=== PATIENT | male | born 1965 ===

== ENCOUNTER 2018-05-02 14:23 | Emergency (ER) | payer OTHER ==
[2018-05-02 14:23] VITALS: BMI 26.2
[2018-05-02 14:40] VITALS: BP 112/78; PULSE 69; TEMP 97; O2SAT 98
--- NOTE | 2018-05-02 15:13 | ED PDOC ---
HPI: Back Time Seen by Provider: 05/02/18 14:32 Chief Complaint (Nursing): Back Pain Chief Complaint (Provider): Back Pain History Per: Patient History/Exam Limitations: no limitations Onset/Duration Of Symptoms: Days (x1) Additional Complaint(s): Patient is a 52 y/o male who presents to the ED complaining of chronic lower back pain which has been worsening since yesterday. Patient states he has also been having left arm pain which he has had in the past along with his back pain. He denies any shortness of breath. Patient reports he no longer sees pain management because his doctor retired. Past Medical History Reviewed: Historical Data, Nursing Documentation, Vital Signs Vital Signs: Last Vital Signs Temp 97 F L 05/02/18 14:39 Pulse 69 05/02/18 14:39 Resp BP 112/78 05/02/18 14:39 Pulse Ox 98 05/02/18 14:39 - Medical History PMH: Arthritis, Asthma, Back Problems, Cardia Arrhythmia, Deep Vein Thrombosis, Gastritis, HTN, Seizures Denies: Chronic Kidney Disease - Surgical History Surgical History: Pacemaker (2013) - Family History Family History: States: Unknown Family Hx - Immunization History Hx Tetanus Toxoid Vaccination: No Hx Influenza Vaccination: No Hx Pneumococcal Vaccination: No - Home Medications Home Medications: Ambulatory Orders Medication Instructions Recorded Atenolol [Tenormin] 25 mg PO DAILY 05/02/18 Rivaroxaban [Xarelto] 15 mg PO DAILY 05/02/18 Simvastatin [Zocor] 20 mg PO DAILY 05/02/18 Topiramate [Topamax] 100 mg PO BID 05/02/18 - Allergies Allergies/Adverse Reactions: Allergies Allergy/AdvReac Type Severity Reaction Status Date / Time iodine Allergy RASH Verified 08/23/16 12:44 Review of Systems ROS Statement: Except As Marked, All Systems Reviewed And Found Negative Constitutional: Negative for: Fever Respiratory: Negative for: Shortness of Breath Musculoskeletal: Positive for: Arm Pain (left), Back Pain Physical Exam - Reviewed Nursing Documentation Reviewed: Yes Vital Signs Reviewed: Yes - Physical Exam Appears: Positive for: Non-toxic, No Acute Distress Head Exam: Positive for: ATRAUMATIC Skin: Positive for: Normal Color, Warm Eye Exam: Positive for: Normal appearance Neck: Positive for: Normal Cardiovascular/Chest: Positive for: Regular Rate, Rhythm. Negative for: Murmur Respiratory: Positive for: Normal Breath Sounds. Negative for: Accessory Muscle Use, Respiratory Distress Extremity: Positive for: Other (strength in bilateral upper extremity 5/5) Neurologic/Psych: Positive for: Alert. Negative for: Motor/Sensory Deficits - ECG O2 Sat by Pulse Oximetry: 98 (RA) Pulse Ox Interpretation: Normal Medical Decision Making Medical Decision Makin03/23/18: Patient received Rx for #120 10 mg Vicodin 04/10/18: Patient received Rx for #10 50 mg Tramadol 04/12/18: Patient received Rx for #20 Ultram 04/18/18: Patient received Rx for #120 10 mg Vicodin Time: 14:54 Initial Plan: discussed case with Dr. Tejada will order EKG and CXR --EKG --CXR 2 views --Ultram 50 mg PO EKG and CXR without acute abnormalities. ~ Scribe Attestation: Documented by Dev Esteban, acting as a scribe for Angela Roa PA-C Provider Scribe Attestation: All medical record entries made by the Scribe were at my direction and personally dictated by me. I have reviewed the chart and agree that the record accurately reflects my personal performance of the history, physical exam, medical decision making, and the department course for this patient. I have also personally directed, reviewed, and agree with the discharge instructions and disposition. Disposition - Clinical Impression Clinical Impression: Exacerbation of chronic back pain - Patient ED Disposition Is Patient to be Admitted: No Counseled Patient/Family Regarding: Diagnosis, Need For Followup, Rx Given - Disposition Disposition: Routine/Home Disposition Time: 16:07 Condition: GOOD Additional Instructions: Please take tylenol for pain at home. Instructions: Low Back Pain in Adults Forms: [employer] (Greenlandic) Print Language: VENEZUELAN
--- NOTE | 2018-05-02 15:42 | RAD ---
Date of service: 05/02/2018 HISTORY: left arm pain, back pain COMPARISON: No prior. TECHNIQUE: Chest PA and lateral FINDINGS: LUNGS: No active pulmonary disease. PLEURA: No significant pleural effusion identified. No pneumothorax apparent. CARDIOVASCULAR: Left subclavian access pacemaker. Atherosclerotic aortic calcifications. Cardiomediastinal silhouette within normal limits. OSSEOUS STRUCTURES: Degenerative changes. VISUALIZED UPPER ABDOMEN: Normal. OTHER FINDINGS: None. IMPRESSION: No active disease.
[2018-05-02 16:09] VITALS: RESP 16
--- NOTE | 2018-05-03 18:29 | CARD ---
APPROVED REPORT Date of service: 05/02/2018 EKG Measurement Heart [id number] <Conclusion> Atrial-paced rhythm Abnormal ECG
== END 2018-05-02 16:13 | disposition home or self-care (01) ==
LOC: H.ER 14:23
DX: M54.5 Low back pain (principal); G89.29 Other chronic pain; I10 Essential (primary) hypertension; J45.909 Unspecified asthma, uncomplicated; Z86.718 Personal history of other venous thrombosis and embolism; Z95.0 Presence of cardiac pacemaker